=== PATIENT | male | born 1940 | race Caucasian/White ===

== ENCOUNTER 2017-01-01 12:27 | Emergency (ER) | payer OTHER ==
--- NOTE | 2017-01-01 12:47 | CPEKG ---
Heart Rate: 65 RR Interval: 923 P-R Interval: 156 QRSD Interval: 154 QT Interval: 480 QTC Interval: 500 P Freeman: 34 QRS Freeman: -49 T Wave Freeman: 100 EKG Severity - ABNORMAL ECG - EKG Impression: SINUS RHYTHM EKG Impression: LEFT BUNDLE BRANCH BLOCK Electronically Signed By: Camelia Jones 01-Jan-2017 18:13:51
--- NOTE | 2017-01-01 12:48 | EDPHY ---
H & P Time Seen by Provider: 01/01/17 13:01 HPI/ROS: CHIEF COMPLAINT: Syncope HISTORY OF PRESENT ILLNESS: This patient is an anticoagulated 76 year old male with history of end-stage cardiomyopathy and an implanted LVAD who presents to the Emergency Department via EMS following a witnessed episode of syncope around noon today, one hour prior to arrival. He has a history of syncopal episodes that are often precipitated by walking outside in the sun, though his last episode was over one year ago. He is visiting from [place] and does admit that he has been more dyspneic and lightheaded since arriving in [place]. Per daughter, he was taking a walk outside in the sun today when he felt increasingly lightheaded, prompting him to sit down. He then lost consciousness for an estimated 10-15 seconds. He denies head trauma or additional injuries secondary to the syncopal episode--he did not fall, but was lowered to the ground. Upon arrival, he states that he feels normal. He denies lightheadedness , chest pain, or dyspnea at this time. Cardiac history includes end-stage cardiomyopathy, atrial valve repair, mitral valve repair, and atrial fibrillation. He does not have an implanted defibrillator. REVIEW OF SYSTEMS: A ten point review of systems was performed and is negative with the exception of the items mentioned in the HPI. Source: Patient, Family, Old records Exam Limitations: No limitations - Medical/Surgical History PMH: 1. End-stage cardiomyopathy 2. Mitral valve repair 3. Intracorporeal LVAD 4. Aortic valve repair 5. Atrial fibrillation 6. Right-sided carotid endarterectomy - Social History Smoking Status: Former smoker (Quit tobacco use in 1962.) Additional Social History: Visiting from [place]. Daughter, at bedside, lives here in [place] and works at [employer] as a nurse. No alcohol use. - Physical Exam Exam: General Appearance: Alert. Vital signs reviewed. Hypertensive at 125/91. Eyes: Pupils equal and round, no conjunctival injection, no discharge. Anicteric. ENT, Mouth: Mucous membranes are moist, no oropharyngeal erythema or edema. Neck: No lymphadenopathy, supple. No JVD. Respiratory: Lungs are clear to auscultation; no wheezes, rales, or rhonchi. Cardiovascular: Regular rate and rhythm, mechanical sounds audible; no murmur, rub, or gallop. Gastrointestinal: Abdomen is soft and nontender, no masses or organomegaly, bowel sounds normal. Skin: Warm and dry, no rashes on exposed skin, normal color. Back: Nontender to palpation over the thoracolumbar spine. No CVAT. Extremities: No lower extremity edema, no calf tenderness or swelling. Neurological: Alert and oriented. Moving all four extremities easily and equally. Psychiatric: Normal affect. Constitutional: Initial Vital Signs Temperature (C) 36.7 C 01/01/17 12:54 Heart Rate 65 01/01/17 12:54 Respiratory Rate 16 01/01/17 12:54 Blood Pressure 125/91 H 01/01/17 12:54 O2 Sat (%) 96 01/01/17 12:54 O2 Delivery Mode Room Air Allergies/Adverse Reactions: celecoxib [From Celebrex] Allergy (Verified 01/01/17 12:53) Home Medications: Medication Instructions Recorded Amiodarone HCl 01/01/17 Coumadin 01/01/17 Levothyroxine 01/01/17 Losartan Potassium 01/01/17 Medical Decision Making - Diagnostics EKG Interpretation: The 12 lead EKG was interpreted by myself: Sinus rhythm, rate 65; LBBB. Not significantly changed from prior EKG obtained on 11/28/2016. See hard copy and/ or "tracemaster" electronic copy for interpretation. ED Course/Re-evaluation: This 76-year-old male with complex cardiac history and LVAD in place presents following a 10-15 second syncopal episode at noon today. He has no injuries secondary to the syncope and collapse. He does have a history of syncopal episodes often associated with dehydration and exertion. He is alert, well- appearing at time of presentation and states that he feels normal. He is hypertensive at time of triage at 125/91. His exam is benign. Will proceed with EKG and labs. Labs obtained. The patient is anemic, which daughter reports is chronic for him. Troponin is negative. BUN and creatinine are mildly elevated, which is at baseline per daughter. He is on Coumadin; INR is within therapeutic range at 2.46. 1350: Consultation with MIDWIFE PRACTITIONER at [facility]. 1400: On reevaluation, the patient is resting comfortably and continues to feel normal. He remains hypertensive at 152/103. 1406: I discussed the patient's case with his nurse in [place] who manages his VAD. I discussed lab findings with her; hct, hgb, BUN and creatinine are at baseline. She recommends admission for cardiac observation overnight, and suggests admission to [facility] given his LVAD. I believe that this is the appropriate treatment plan given his history. I discussed this with the patient and his daughter who are agreeable to this. 1422: I spoke with the MIDWIFE PRACTITIONER at [facility]; it is agreed that transfer is most appropriate. Will therefore arrange transfer to [facility]. 1444: I discussed the case with Dr. Vega, supervisor grips at [facility], who accepts transfer. Differential Diagnosis: I considered a ddx that includes but is not limited to cardiac arrhythmia, dehydration, blood loss, vasovagal syncope, LVAD failure. - Data Points Laboratory Results: Laboratory Results 01/01/17 12:50 01/01/17 12:50 Departure - Departure Disposition: [facility] Clinical Impression: LVAD (left ventricular assist device) present Syncope Qualifiers: Syncope type: unspecified Qualified Code(s): R55 - Syncope and collapse Condition: Good Referrals: Patient,NotPresent [Unknown] - As per Instructions Report Scribed for: Camelia Jones Report Scribed by: Vanessa Balderas Date of Report: 01/01/17 Time of Report: 14:49 Physician Review and Approval Statement: 01/01/17 12:59 Portions of this note were transcribed by the nuclear medical tech. I, Dr. Camelia Jones, personally performed the history, physical exam, and medical decision- making; and confirmed the accuracy of the information in the transcribed note.
[2017-01-01 13:00] VITALS: RESP 16
[2017-01-01 13:04] LABS: % IMMATURE GRANULYOCYTES 0.5 % (0.0-1.1); ABSOLUTE IMMATURE GRANULOCYTES 0.04 10^3/uL (0.00-0.10); ADD DIFF? NO; ADD MORPH? NO; ADD SCAN? NO; ATYPICAL LYMPHOCYTE FLAG 10 (0-99); FRAGMENT RBC FLAG 0 (0-99); HEMATOCRIT 27.4 % (40.0-51.0); LEFT SHIFT FLG 0 (0-99); LIPEMIA HEMOLYSIS FLAG 80 (0-99); MEAN CELL HEMOGLOBIN 30.6 pg (27.9-34.1); MEAN CELL HEMOGLOBIN CONCENTR. 32.8 g/dL (32.4-36.7); MEAN CELL VOLUME 93.2 fL (81.5-99.8); MEAN PLATELET VOLUME 11.4 fL (8.7-11.7); PLATELET CLUMPS FLAG 0 (0-99); PLATELET COUNT 164 10^3/uL (150-400); RED BLOOD CELL COUNT 2.94 10^6/uL (4.40-6.38); RED CELL DISTRIBUTION WIDTH 15.6 % (11.5-15.2)
[2017-01-01 13:12] LABS: ANION GAP 13 mEq/L (8-16); CALCIUM 9.3 mg/dL (8.5-10.4); CARBON DIOXIDE 22 mEq/l (22-31); CHLORIDE 108 mEq/L (97-110); CREATININE 1.6 mg/dL (0.7-1.3); GLOMERULAR FILTRATION RATE 42; GLUCOSE 88 mg/dL (70-100); INR 2.46 (0.83-1.16); POTASSIUM 4.5 mEq/L (3.5-5.2); PROTIME(PATIENT) 26.9 SEC (12.0-15.0); SODIUM 143 mEq/L (134-144)
[2017-01-01 13:24] LABS: TROPONIN I 0.015 ng/mL (0-0.034)
[2017-01-01 16:53] VITALS: BP 140/76; PULSE 75; TEMP 97.7; O2SAT 95
== END 2017-01-01 16:53 | disposition short-term general hospital (02) ==
DX: R55 Syncope and collapse (principal); Z79.01 Long term (current) use of anticoagulants; Z87.891 Personal history of nicotine dependence; Z95.811 Presence of heart assist device